=== PATIENT | male | born 1935 | race Caucasian/White ===

== ENCOUNTER 2018-03-08 08:38 | Inpatient (IN) | payer MEDICARE, BC ==
[2018-03-08 09:27] LABS: #Eosinphils 0.2 thou/uL (0.0-0.7); #Lymphocytes 0.5 thou/uL (1.20-3.40); #Monocytes 0.7 thou/uL (0.11-0.59); #Neutrophils 3.7 thou/uL (1.40-6.50); %Basophils 0.5 % (0.0-1.0); %Eosinophils 3.7 % (0.0-10.0); %Monocytes 13.6 % (0.0-10.0); %Neutrophils 73.2 % (42.0-75.0); Hemoglobin 12.5 g/dL (14.0-18.0); Mean Corpuscular HGB CONC 34.9 g/dL (32.0-36.0); Mean Corpuscular Hemoglobin 33.4 pg (27.0-31.0); Mean Corpuscular Volume 95.7 fl (80.0-94.0); Mean Platelet Volume 5.9 fL (7.4-10.4); Platelet Count 167 thou/uL (130-400); RBC Distribution Width 12.8 % (11.5-14.5); Red Blood Cell (RBC) Count 3.74 mill/uL (4.70-6.10); White Blood Cell (WBC) Count 5.1 thou/uL (4.8-10.8)
[2018-03-08 09:41] LABS: ALT (SGPT) 15 U/L (8-55); AST (SGOT) 21 U/L (5-34); Alkaline Phosphatase 64 U/L (40-150); Anion Gap 10 mmol/L (10-20); BUN (Urea Nitrogen) 14 mg/dL (8.4-25.7); Bilirubin, Total 1.1 mg/dL (0.2-1.2); CK (CPK) 368 U/L (30-200); Calc. Creatinine Clearance 0 mL/min (70-130); Carbon Dioxide 27 mmol/L (23-31); Chloride 101 mmol/L (98-107); Estimated GFR-MDRD 89; Globulin 2.7 g/dL (2.4-3.5); Glucose 116 mg/dL (83-110); Potassium 3.5 mmol/L (3.5-5.1); Protein, Total 6.7 g/dL (5.8-8.1); Sodium 134 mmol/L (136-145)
--- NOTE | 2018-03-08 09:41 | RAD ---
PORTABLE CHEST ONE VIEW: Date: 03-08-18 Time: 9:28 a.m. History: Fall. Right hip pain. FINDINGS: There are changes of median sternotomy. The heart size is borderline. The aorta is tortuous. No focal area of consolidation, pneumothorax, toni edema or pleural effusions are seen. IMPRESSION: No acute process. POS: [facility]
--- NOTE | 2018-03-08 09:42 | RAD ---
TWO VIEWS RIGHT HIP: Comparison: None. History: Right hip pain with movement after fall from standing last night. FINDINGS: Two views of the right hip shows a fracture of the right femoral neck which is moderately displaced. Mild degenerative changes are seen in the right hip. Surrounding soft tissue swelling is seen. IMPRESSION: Right femoral neck fracture. POS: [facility]
--- NOTE | 2018-03-08 09:43 | RAD ---
SINGLE VIEW OF PELVIS: Comparison: None. History: Fall from standing with right hip pain. FINDINGS: Single view of the pelvis shows a fracture of the right femoral neck. Mild degenerative changes are s een in both hips. Right hip soft tissue swelling is seen. IMPRESSION: Right femoral neck fracture. POS: [facility]
[2018-03-08 09:46] LABS: CKMB 1.9 ng/mL (0-6.6); Troponin I Less than 0.010 ng/mL (< 0.028)
[2018-03-08 10:13] LABS: Bilirubin Negative (Negative); Blood, Urine Negative (Negative); Clarity CLEAR (Clear); Glucose, Urine (Dipstick) Negative (Negative); Leukocyte Negative (Negative); Nitrite Negative (Negative); Protein, Urine (Dipstick) Negative (Neg-Trace); Specific Gravity, Urine 1.017 (1.002-1.036); Urobilinogen 0.2 mg/dL (0.2-1.0); pH, Urine 5.5 (5.0-9.0)
[2018-03-08 10:47] LABS: INR-International Normal Ratio 1.1; PTT 37.8 SEC (22.9-36.1); Prothrombin Time 14.4 SEC (12.0-14.7)
[2018-03-08] MEDS ORDERED: hydrALAZINE 20 MG/ML VIAL SLOW IVP PRN (13:07)
[2018-03-08] MEDS ORDERED: Dextrose 50% Abboject 50 ML SYRINGE SLOW IVP PRN (13:07)
[2018-03-08] MEDS ORDERED: Dextrose 5% in Water 1,000 ML IV PRN (13:07)
[2018-03-08] MEDS ORDERED: Ondansetron HCl/PF 4 MG/2 ML Vial IVP PRN (13:13)
[2018-03-08] MEDS ORDERED: Ondansetron ODT 4 MG TAB PO PRN (13:13)
[2018-03-08] MEDS ORDERED: Morphine 4 MG/ML VIAL SLOW IVP PRN ×2 (13:13)
[2018-03-08] MEDS ORDERED: CEFAZOLIN/Water 2 GM/20 ML SYRINGE SLOW IVP SCH (14:00)
--- NOTE | 2018-03-08 14:44 | HP ---
DATE OF ADMISSION: 03/08/2018 REQUESTING PHYSICIAN: Elliott Kunz M.D. ATTENDING SURGEON: Dr. Freeman. CONSULTATION: Orthopedics, Dr. Hatfield. HISTORY OF PRESENT ILLNESS: The patient is an 82-year-old man who reportedly yesterday got his foot caught in a fence and fell down landing on his right side. The patient was unable to ambulate, was c arried to the house by family and friends where he stayed in bed overnight. This morning, he was bro ught to the emergency department after he was unable to significantly ambulate again. He was evaluat ed, examined and noted to have a right femoral neck fracture, at which time we were asked to evaluate the patient for admission and obtain orthopedic consultations. The patient denied shortness of kailee th, chest pain, dizziness or any syncopal type symptoms prior to his fall. The patient did not strik e his head, had no loss of consciousness. ALLERGIES: None. CURRENT MEDICATIONS: Daily aspirin, atorvastatin, carvedilol, losartan, sulfasalazine and vitamin D3 . PAST MEDICAL HISTORY: Hypertension and hyperlipidemia. PAST SURGICAL HISTORY: Four-vessel coronary artery bypass graft in 2016, tonsillectomy and cholecyst ectomy. SOCIAL HISTORY: Patient drinks approximately 5 drinks per day. Denies drug use. Denies tobacco use . The patient lives independently at home with his family. FAMILY HISTORY: Hypertension. REVIEW OF SYSTEMS: Ten-point review of systems was negative, otherwise stated. PHYSICAL EXAMINATION: VITAL SIGNS: Blood pressure 131/67, heart rate 65, respirations 16, oxygen saturation 95% on room ai r, and temperature 98.4. GENERAL: The patient is resting comfortably in bed. He is awake, alert, oriented x3. [place] coma scale is 15. HEENT: Head is normocephalic, atraumatic. Eyes: Extraocular motion intact. PERRLA bilaterally. E ars are atraumatic without discharge. Nose is atraumatic without discharge. Oropharynx is clear. NECK: Nontender. Trachea is midline. No JVD. CHEST: Clear to auscultation with good inspiratory and expiratory effort. HEART: Regular rate and rhythm. ABDOMEN: Soft, flat, and nontender with active bowel sounds. Pelvis is stable with tenderness to pa lpation to his left hip consistent with his fracture. EXTREMITIES: Neurovascularly intact x4. BACK: By history is atraumatic and nontender. LABORATORY DATA: White blood cell count 5.1, hemoglobin 12.5, hematocrit 35.8, platelets 167. Sodiu m 134, potassium 3.5, chloride 101, CO2 27, BUN 14, creatinine 0.83, glucose 116. LFTs are unremarka ble. CK 368, PTT 38, PT 14, INR 1.1. Urinalysis is unremarkable. IMAGING DATA: Chest x-ray shows no acute process. AP pelvis shows a right femoral neck fracture. R ight hip films show again a right femoral neck fracture. ASSESSMENT AND PLAN: 1. Status post ground level fall. 2. Right femoral neck fracture. 3. Possible rhabdomyolysis. 4. Pain secondary to acute trauma. 5. History of hypertension. Plan will be to admit the patient to the surgical floor after consultation with Orthopedics. They di d determine that they will take the patient to OR tomorrow for operative intervention. We will do pu lmonary toilet, pain control, IV hydration. Repeat labs in the morning. Gastritis and mechanical DV T prophylaxis. The evaluation, examination, laboratory and radiographic findings were discussed with Dr. Freeman at the time of dictation.
[2018-03-08] MEDS: Ketorolac Tromethamine 30 MG/ML VIAL IVP SCH ×2 (15:01→20:11)
[2018-03-08] MEDS: Acetaminophen 1,000 MG in Premix Bag 1 BAG IVPB SCH ×2 (15:02→20:10)
[2018-03-08] MEDS: Sodium Chloride 0.9% 1,000 ML IV SCH ×2 (15:02→20:10)
--- NOTE | 2018-03-08 15:08 | CON ---
DATE OF CONSULTATION: 03/08/2018 REQUESTING PHYSICIAN: Irvin Kunz. CONSULTING PHYSICIAN: Ihsan Hatfield M.D. REASON FOR CONSULTATION: Right hip fracture. HISTORY OF PRESENT ILLNESS: This is a very active 82-year-old male who states that he was picking be rries in his garden yesterday evening around 8:00 when he tripped over the hot wire cable that keeps the chickens out of his garden. He fell. His son and grandson helped him inside the house where he slept in the recliner for the first portion of the evening. Family at bedside state that they found him in his bed this morning. At that time, he requested they call EMS for transport to the hospital. Upon arrival to our emergency department here at [place] [place], the patient was found to have a right femoral neck fracture that appears somewhat impacted. Orthopedic Services has been consulted for thi s reason. The patient denies any other injuries at the time of his fall. He denies any numbness or tingling to the right lower extremity. He denies head injury. He also denies being on any anticoagu lants. States he takes aspirin daily. PAST MEDICAL HISTORY: Significant for hyperlipidemia and hypertension. PAST SURGICAL HISTORY: Significant for coronary artery bypass graft with 4 vessels done in 03/[address] Duron. He also states he has had a cholecystectomy and a tonsillectomy. SOCIAL HISTORY: Patient states he drinks every day approximately 3-4 drinks. Denies illicit drug us e. Denies smoking history. [place] [facility] [place] other family in nearby home on the same lot of land. Uses a cane to get around occasionally. Lives alone in his house. FAMILY HISTORY: Noncontributory. REVIEW OF SYSTEMS: Ten-point review of systems was conducted and otherwise negative except for as st ated above. PHYSICAL EXAMINATION: VITAL SIGNS: Blood pressure 162/86, pulse of 71, respiratory rate of 18, temperature of 98.4, O2 sat uration is 95% on room air. GENERAL: The patient is awake, alert, and oriented x3. He is in no acute distress. Daughter at bed side. He is appropriate with exam findings today. HEENT: Head is normocephalic, atraumatic. NECK: Supple. Breathing is nonlabored. EXTREMITIES: The right lower extremity appears shortened and slightly externally rotated. There is tenderness to palpation along the trochanteric region of the right hip. SKIN: Free of lesions and rashes. Distal neurovascular status is intact. Remainder of extremity ex am is unremarkable. IMAGING DATA: Radiographic findings including 2 views of the right hip and an AP pelvis demonstrate a femoral neck fracture that appears somewhat impacted. Those findings were reviewed with Dr. Schmid as well as myself today. ASSESSMENT: Right femoral neck fracture. PLAN: Plan of care discussed with Dr. Hatfield today. We have also discussed the plan of care with family at bedside. Surgical options at this time are hemiarthroplasty versus possible total hip repl acement due to the patient's active lifestyle. We will further discuss these options with the patien t and his family as well as Dr. Hatfield. The patient had two bite snickers at bedside at 10:30 this morning in the emergency department. We will plan for surgery tomorrow once we further discussed ri sks, benefits, and alternatives with the family.
[2018-03-08 17:02] VITALS: BMI 25.7
[2018-03-08] MEDS ORDERED: Prevnar 13-Val Conj/PF 0.5 ML SYRINGE IM ONE (17:30)
[2018-03-08] MEDS: Famotidine 20 MG TAB PO SCH (20:10)
[2018-03-08] MEDS: Carvedilol 3.125 MG TAB PO SCH (21:13)
[2018-03-09] MEDS: Acetaminophen 1,000 MG in Premix Bag 1 BAG IVPB SCH (01:49)
[2018-03-09] MEDS: Ketorolac Tromethamine 30 MG/ML VIAL IVP SCH ×2 (01:50→08:00)
[2018-03-09 05:00] LABS: Anion Gap 7 mmol/L (10-20); BUN (Urea Nitrogen) 15 mg/dL (8.4-25.7); Calc. Creatinine Clearance 87 mL/min (70-130); Calcium 8.2 mg/dL (7.8-10.44); Carbon Dioxide 28 mmol/L (23-31); Chloride 102 mmol/L (98-107); Estimated GFR-MDRD 89; Glucose 103 mg/dL (83-110); Phosphorus 4.2 mg/dL (2.3-4.7); Potassium 3.9 mmol/L (3.5-5.1); Sodium 133 mmol/L (136-145)
[2018-03-09 05:33] LABS: Eosinophils 2 % (0-10); Hemoglobin 11.2 g/dL (14.0-18.0); Hypochromia SLIGHT = 6-15 cells (100X) (0-5/hpf); Lymphocytes 9 % (21-51); MDiff Complete? YES; Mean Corpuscular Volume 97.2 fl (80.0-94.0); Mean Platelet Volume 6.1 fL (7.4-10.4); Monocytes 17 % (0-10); Neutrophil 72 % (42-75); PLT Morphology Comment Appears Adequate; Platelet Count 142 thou/uL (130-400); RBC Distribution Width 12.9 % (11.5-14.5); Red Blood Cell (RBC) Count 3.38 mill/uL (4.70-6.10); White Blood Cell (WBC) Count 4.4 thou/uL (4.8-10.8)
[2018-03-09] MEDS: Sodium Chloride 0.9% 1,000 ML IV SCH ×3 (05:50→18:59)
[2018-03-09] MEDS: Carvedilol 3.125 MG TAB PO SCH ×2 (06:07→20:28)
[2018-03-09] MEDS ORDERED: Fentanyl 100 MCG/2 ML VIAL ONE (07:11)
[2018-03-09] MEDS ORDERED: CEFAZOLIN/Water 2 GM/20 ML SYRINGE ONE (07:36)
[2018-03-09] MEDS ORDERED: Bupivacaine 0.75% W/DEXTROSE 8.25% 2 ML AMP ONE (07:52)
[2018-03-09] MEDS ORDERED: Morphine PF 1 MG/ML SYR ONE (07:52)
[2018-03-09] MEDS ORDERED: Midazolam HCl 2 mg/2 ml Vial ONE (08:47)
[2018-03-09] MEDS: Famotidine 20 MG TAB PO SCH ×2 (09:00→20:28)
[2018-03-09] MEDS ORDERED: Propofol 500 MG/50 ML VIAL ONE (09:38)
[2018-03-09] MEDS ORDERED: Promethazine HCl 25 MG/ML VIAL SLOW IVP PRN (10:26)
[2018-03-09] MEDS ORDERED: Promethazine HCl 25 MG/ML VIAL IM PRN (10:26)
[2018-03-09] MEDS ORDERED: Ondansetron HCl/PF 4 MG/2 ML Vial IVP PRN ×2 (10:26→11:55)
[2018-03-09] MEDS ORDERED: diphenhydrAMINE 50 MG/ML VIAL IVP PRN (11:55)
[2018-03-09] MEDS ORDERED: Naloxone HCl 0.4 mg/ml Vial IV PRN (11:55)
[2018-03-09] MEDS ORDERED: Naloxone HCl 0.4 mg/ml Vial IVP PRN ×2 (11:55)
[2018-03-09] MEDS ORDERED: Eucerin (Mineral Oil/Petrolatum,White) 30 gm Jar TOP PRN (11:55)
[2018-03-09] MEDS ORDERED: Communication Order-Pharmacy FS SCH (12:00)
--- NOTE | 2018-03-09 12:02 | OP ---
DATE OF SURGERY: 03/09/2018 PREOPERATIVE DIAGNOSIS: Right subcapital femoral neck fracture. POSTOPERATIVE DIAGNOSIS: Right subcapital femoral neck fracture. SURGICAL PROCEDURE: Right hip hemiarthroplasty. ANESTHESIA: Spinal. SURGEON: Ihsan Hatfield M.D. CRACKER OFF: Tamiko Golden PA-C. ESTIMATED BLOOD LOSS: 300 mL. IMPLANTS: DePuy system was used with a size 7 Stanley stem, a +5 Articul/Kevin femoral head and a 28 x 57 mm bipolar cup. COMPLICATIONS: None. DRAINS: None. SPECIMEN: None. OUTCOME: Satisfactory. INDICATIONS: The patient is a pleasant 82-year-old gentleman who sustained a ground level fall fract uring his left subcapital femoral neck. After discussion with patient including risks and benefits, we decided to proceed with right hip hemiarthroplasty. Informed consent has been obtained. I believ e all questions have been answered. PROCEDURE IN DETAIL: After the induction of spinal anesthesia, the patient was positioned in the lef t lateral decubitus position and then a sterile prep and drape was performed of the right lower extre mity. Next, a curvilinear incision was made centered over the tip of the greater trochanter. After skin was sharply incised, dissection was carried through the subcutaneous fat down to the tensor fasc ia and fascia clarissa. This structure was incised in line with the skin incision and then reflected ant eriorly and posteriorly revealing the greater trochanter and the trochanteric bursa. The bursa was s wept off the short external rotators and an elevator was passed under the abductors revealing the pir iformis as well as the superior and inferior gemelli. The piriformis was resected and tagged and ref lected posteriorly as was the gemelli. Next, a T-capsulotomy was performed. The hip was dislocated and the femoral head removed from the acetabulum without difficulty. Next, an oscillating saw was us ed to make a femoral neck cut. Excess bone was then removed from the wound including exploration of the acetabular cup to make sure no bone fragments were present. At the completion of this, a box cut ter chisel was used to open up the proximal femur followed by a T-handle awl. A lateralizing reamer was then passed down the canal and then progressive T-handle awls were passed down the canal up to a size 7. Broaching was started at size 3 and continued up to size 7 that provided excellent fit and f ill. A trial reduction was performed and a +5 head was found to give excellent stability of the hip and equalize on leg lengths. As such, the trial components were removed from the hip. The leg was t hen irrigated with 3 liters of normal saline using Pulsavac and then the final implant was inserted i n the femur. The bipolar head assembled and inserted on top of the stem and then the hip reduced, th is resulted in the hip with excellent stability. The wound again irrigated with Pulsavac and then cl osed in layers with #2 Vicryl for a capsular closure followed by #2 Vicryl for reattachment of the pi riformis and gemelli. Next, #2 Vicryl was used for the tensor fascia and fascia clarissa followed by 0 V icryl for Arnulfo's fascia, 2-0 Vicryl subcutaneously and nova for the skin. A Xeroform gauze and tape dressing was applied to the thigh and then patient was transferred to recovery room in stable co ndition. There were no complications. He tolerated the procedure well.
--- NOTE | 2018-03-09 12:43 | RAD ---
RIGHT HIP 2 VIEWS: Date: 03/09/18 HISTORY: Postop. FINDINGS: Total hip prosthesis is in satisfactory position. No fracture. IMPRESSION: Placement of total hip prosthesis. POS: [facility]
[2018-03-09] MEDS ORDERED: PHENYLEPHRINE-NS 100 MCG/ML 10 ML SYRINGE ONE (15:22)
[2018-03-09] MEDS ORDERED: PROPOFOL 200 MG/20 ML VIAL ONE (15:22)
[2018-03-09] MEDS ORDERED: Lidocaine 1% PF 5 ML VIAL ONE (15:22)
[2018-03-09] MEDS ORDERED: ePHEDrine/0.9% NaCl/PF SYRINGE 50 mg/10 ml ONE (15:22)
[2018-03-09] MEDS ORDERED: traMADol HCl 50 MG TAB PO PRN ×3 (17:03→23:59)
[2018-03-09] MEDS: CEFAZOLIN/Water 2 GM/20 ML SYRINGE SLOW IVP SCH (17:04)
[2018-03-09] MEDS ORDERED: Ibuprofen 600 MG TAB PO PRN (17:15)
[2018-03-09] MEDS: Acetaminophen 500 MG TAB PO SCH (18:14)
[2018-03-09] MEDS: sulfaSALAzine 500 MG TAB PO SCH (20:27)
[2018-03-09] MEDS: Atorvastatin Calcium 40 MG TAB PO SCH (20:28)
[2018-03-09] MEDS ORDERED: Morphine 4 MG/ML VIAL SLOW IVP PRN ×2 (23:59)
[2018-03-10] MEDS: CEFAZOLIN/Water 2 GM/20 ML SYRINGE SLOW IVP SCH ×2 (00:25→09:34)
[2018-03-10] MEDS: Acetaminophen 500 MG TAB PO SCH ×5 (00:25→23:48)
[2018-03-10 07:34] LABS: Hemoglobin 9.7 g/dL (14.0-18.0); Mean Corpuscular HGB CONC 34.7 g/dL (32.0-36.0); Mean Corpuscular Hemoglobin 33.6 pg (27.0-31.0); Mean Corpuscular Volume 96.7 fl (80.0-94.0); Mean Platelet Volume 5.9 fL (7.4-10.4); Platelet Count 133 thou/uL (130-400); RBC Distribution Width 12.7 % (11.5-14.5); Red Blood Cell (RBC) Count 2.89 mill/uL (4.70-6.10)
[2018-03-10 07:56] LABS: Band 13 % (5-11); Eosinophils 3 % (0-10); Lymphocytes 14 % (21-51); MDiff Complete? YES; Metamyelocyte 5 % (0-0); Monocytes 1 % (0-10); Neutrophil 58 % (42-75); Reactive Lymphocytes 4 % (0-10); Reflex for Review?? YES
[2018-03-10] MEDS ORDERED: CEFAZOLIN/Water 2 GM/20 ML SYRINGE SLOW IVP SCH (08:46)
[2018-03-10] MEDS: Famotidine 20 MG TAB PO SCH ×2 (09:15→21:06)
[2018-03-10] MEDS: sulfaSALAzine 500 MG TAB PO SCH ×2 (09:15→21:08)
[2018-03-10] MEDS: Carvedilol 3.125 MG TAB PO SCH ×2 (09:15→21:08)
[2018-03-10] MEDS: Polyethylene Glycol 3350 17 GM Packet PO SCH (09:16)
[2018-03-10] MEDS: Senokot S 8.6-50 MG TAB PO SCH ×2 (09:16→21:07)
[2018-03-10] MEDS: traMADol HCl 50 MG TAB PO PRN (10:24)
[2018-03-10] MEDS: Cyclobenzaprine 10 MG TAB PO PRN (21:02)
[2018-03-10] MEDS: Atorvastatin Calcium 40 MG TAB PO SCH (21:08)
--- NOTE | 2018-03-11 00:32 | PRG ---
DATE OF SERVICE: 03/10/2018 SUBJECTIVE: The patient is currently on the surgical floor. He is hospital day #2, postop day #1 st atus post ground-level fall, in which he sustained a right femoral neck fracture. The patient underw ent surgery yesterday and tolerated this procedure well. Today, he is working with physical and occu pational therapy. He states that his pain is controlled and he is tolerating a diet. OBJECTIVE: VITAL SIGNS: Temperature is 97.9, heart rate 71, blood pressure 106/62, oxygen saturation is 94% on room air. GENERAL: The patient is resting comfortably in bed. He has just finished working with physical and occupational therapy. He is alert and oriented. His [place] coma scale is 15. HEENT: Unremarkable. LUNGS: Clear to auscultation bilaterally with good inspiratory and expiratory effort. HEART: Regular rate and rhythm. ABDOMEN: Soft, flat, nontender with active bowel sounds. EXTREMITIES: Neurovascularly intact x4. Capillary refill is less than 3 seconds. LABORATORY DATA: White blood cell count 5.0, hemoglobin 9.7, hematocrit 27.9, platelets 133. Sodium 133, potassium 3.9, chloride 102, CO2 of 28, BUN 15, creatinine 0.83, glucose 103, magnesium 2.0, ph osphorus 4.2. There are no radiographs to review this morning. ASSESSMENT AND PLAN: 1. Status post ground-level fall. 2. Status post open reduction and internal fixation of right hip fracture. Plan will be to continue supportive care, physical and occupational therapy and consult rehab for fin al disposition.
[2018-03-11 05:17] LABS: Anion Gap 7 mmol/L (10-20); BUN (Urea Nitrogen) 12 mg/dL (8.4-25.7); CK (CPK) 428 U/L (30-200); Calc. Creatinine Clearance 97 mL/min (70-130); Calcium 8.5 mg/dL (7.8-10.44); Carbon Dioxide 30 mmol/L (23-31); Chloride 103 mmol/L (98-107); Estimated GFR-MDRD Greater than 90; Glucose 110 mg/dL (83-110); Magnesium 1.8 mg/dL (1.6-2.6); Potassium 3.8 mmol/L (3.5-5.1); Sodium 136 mmol/L (136-145)
[2018-03-11 05:28] LABS: Band 10 % (5-11); Eosinophils 2 % (0-10); Hemoglobin 9.6 g/dL (14.0-18.0); Lymphocytes 18 % (21-51); MDiff Complete? YES; Mean Corpuscular HGB CONC 34.1 g/dL (32.0-36.0); Mean Corpuscular Hemoglobin 32.8 pg (27.0-31.0); Mean Platelet Volume 6.3 fL (7.4-10.4); Metamyelocyte 2 % (0-0); Monocytes 8 % (0-10); Neutrophil 60 % (42-75); PLT Morphology Comment Appears Adequate; Platelet Count 147 thou/uL (130-400); RBC Distribution Width 12.6 % (11.5-14.5); Red Blood Cell (RBC) Count 2.92 mill/uL (4.70-6.10); White Blood Cell (WBC) Count 5.7 thou/uL (4.8-10.8)
[2018-03-11] MEDS: Acetaminophen 500 MG TAB PO SCH ×4 (06:10→23:55)
[2018-03-11] MEDS: Famotidine 20 MG TAB PO SCH ×2 (08:47→20:35)
[2018-03-11] MEDS: sulfaSALAzine 500 MG TAB PO SCH ×2 (08:47→20:36)
[2018-03-11] MEDS: Carvedilol 3.125 MG TAB PO SCH ×2 (08:47→20:35)
[2018-03-11] MEDS: traMADol HCl 50 MG TAB PO PRN (08:48)
[2018-03-11] MEDS: Polyethylene Glycol 3350 17 GM Packet PO SCH (08:53)
[2018-03-11] MEDS: Senokot S 8.6-50 MG TAB PO SCH ×2 (08:53→20:36)
[2018-03-11] MEDS: Aspirin 81 mg Enteric Coated Tablet PO SCH ×2 (11:08→20:33)
--- NOTE | 2018-03-11 14:09 | PRG ---
DATE OF SERVICE: 03/11/2018 The patient is currently on the surgical floor. He is hospital day #3, postop day #2 status post jessa und level fall which he sustained a right femoral neck fracture. The patient underwent open reductio n internal fixation for the same. He tolerated the procedure well and has begun working with physica l and occupational therapy. The patient had no issues overnight. This morning he states his pain co ntrolled. He is tolerating a diet. OBJECTIVE: VITAL SIGNS: Temperature is 98.2, heart rate 72, blood pressure 125/67, respirations 14, oxygen satu ration 97% on room air. GENERAL: The patient is resting comfortably in a chair beside his bed. He is awake, alert, and orie nted x3. [place] coma scale is 15. LUNGS: Clear to auscultation with good inspiratory and expiratory effort. HEART: Regular rate and rhythm. ABDOMEN: Soft, flat, nontender with active bowel sounds. EXTREMITIES: Neurovascularly intact x4. Postop dressing is clean, dry and intact. LABORATORY DATA: White blood cell count 5.7, hemoglobin 9.6, hematocrit 28.0, platelets 147. Sodium 136, potassium 3.8, chloride 103, CO2 30, BUN 12, creatinine 0.74, magnesium 1.8, phosphorus 3.0. There are no radiographs to review this morning. ASSESSMENT AND PLAN: 1. Status post ground level fall. 2. Status post open reduction internal fixation of right hip fracture. The plan will be to continue supportive care, physical and occupational therapy and await final place ment decision.
[2018-03-11] MEDS: Atorvastatin Calcium 40 MG TAB PO SCH (20:33)
[2018-03-11] MEDS: Cyclobenzaprine 10 MG TAB PO PRN (20:36)
[2018-03-12 04:22] LABS: Anion Gap 7 mmol/L (10-20); BUN (Urea Nitrogen) 12 mg/dL (8.4-25.7); CK (CPK) 304 U/L (30-200); Calc. Creatinine Clearance 95 mL/min (70-130); Calcium 8.3 mg/dL (7.8-10.44); Carbon Dioxide 31 mmol/L (23-31); Chloride 101 mmol/L (98-107); Estimated GFR-MDRD Greater than 90; Glucose 102 mg/dL (83-110); Magnesium 1.8 mg/dL (1.6-2.6); Phosphorus 3.2 mg/dL (2.3-4.7); Potassium 3.6 mmol/L (3.5-5.1); Sodium 135 mmol/L (136-145)
[2018-03-12 04:26] LABS: Band 1 % (5-11); Eosinophils 5 % (0-10); Hemoglobin 9.1 g/dL (14.0-18.0); Lymphocytes 15 % (21-51); MDiff Complete? YES; Mean Corpuscular HGB CONC 34.2 g/dL (32.0-36.0); Mean Corpuscular Hemoglobin 33.2 pg (27.0-31.0); Mean Corpuscular Volume 97.2 fl (80.0-94.0); Mean Platelet Volume 5.9 fL (7.4-10.4); Monocytes 17 % (0-10); Neutrophil 62 % (42-75); PLT Morphology Comment Appears Adequate; Platelet Count 164 thou/uL (130-400); RBC Distribution Width 12.8 % (11.5-14.5); Red Blood Cell (RBC) Count 2.75 mill/uL (4.70-6.10); White Blood Cell (WBC) Count 5.2 thou/uL (4.8-10.8)
[2018-03-12] MEDS: Acetaminophen 500 MG TAB PO SCH ×2 (06:41→15:14)
[2018-03-12] MEDS: Aspirin 81 mg Enteric Coated Tablet PO SCH (07:57)
[2018-03-12] MEDS: Carvedilol 3.125 MG TAB PO SCH (07:57)
[2018-03-12] MEDS: traMADol HCl 50 MG TAB PO PRN (07:58)
[2018-03-12] MEDS: Famotidine 20 MG TAB PO SCH (07:59)
[2018-03-12] MEDS: Senokot S 8.6-50 MG TAB PO SCH (08:00)
[2018-03-12] MEDS: Polyethylene Glycol 3350 17 GM Packet PO SCH (08:00)
[2018-03-12] MEDS: sulfaSALAzine 500 MG TAB PO SCH (08:00)
[2018-03-12 12:47] VITALS: TEMP 98
[2018-03-12 13:16] VITALS: BP 154/89
--- NOTE | 2018-03-13 14:46 | EKG ---
Test Reason : Blood Pressure : / mmHG Vent. Rate : 066 BPM Atrial Rate : 066 BPM P-R Int : 210 ms QRS Dur : 102 ms QT Int : 432 ms P-R-T Axes : 070 -62 025 degrees QTc Int : 452 ms Sinus rhythm with 1st degree A-V block Incomplete right bundle branch block Left anterior fascicular block No STEMI Abnormal ECG Confirmed by KELLI RODRIGUEZ, SANGITA Ramsey ([id number]), supervising film or videotape editor JUDAH VALENCIA ([id number]) on 03/13/2018 2:46:04 PM Referred By: Confirmed By:SANGITA PEREIRA MD
== END 2018-03-12 17:20 | disposition home or self-care (01) | DRG 470 ==
LOC: ERS 08:38 → SURG B 11:48
PROVIDERS: ADMIT Surgery; ATTEND Surgery
PROC: 0SRR0JZ Replacement of Right Hip Joint, Femoral Surface with Synthetic Substitute, Open Approach (ICD-10-PCS; principal; 2018-03-09)
DX: S72.001A Fracture of unspecified part of neck of right femur, initial encounter for closed fracture (principal); M62.82 Rhabdomyolysis; S72.011A Unspecified intracapsular fracture of right femur, initial encounter for closed fracture; W19.XXXA Unspecified fall, initial encounter; I10 Essential (primary) hypertension; Z95.1 Presence of aortocoronary bypass graft; E78.5 Hyperlipidemia, unspecified; Z79.82 Long term (current) use of aspirin
CPT/HCPCS: 36415; 71045; 72170; 80048; 80053; 81003; 82550; 82553; 83735; 84100; 84484; 85025; 85060; 85610; 85730; 93005; G0390; G8978-GP-CL; G8979-GP-CJ; G8987-GO-CK; G8988-GO-CI; J0131; J1885; J2001; J2250; J2274; J2704; J3010; J3490

== ENCOUNTER 2020-01-08 08:36 | Emergency (ER) | payer MEDICARE, BC ==
--- NOTE | 2020-01-08 10:10 | RAD ---
PORTABLE CHEST 1 VIEW: DATE: 01/08/2020. TIME: 9:02 AM. HISTORY: Cough. FINDINGS: Comparison is made with the exam of 03/08/2018. There are changes of median sternotomy. The heart size is normal. The aorta is tortuous. The lungs are expanded without lobar consolidation, pneumothoraces, or pleural effusions. There are degenerat francisca changes in the acromioclavicular joints. IMPRESSION: No acute process. POS: [facility]
[2020-01-08 10:11] LABS: Mean Corpuscular HGB CONC 35.1 g/dL (32.0-36.0); Mean Corpuscular Hemoglobin 34.1 pg (27.0-31.0); Mean Corpuscular Volume 96.9 fL (78.0-98.0); Mean Platelet Volume 6.5 fL (7.4-10.4); Platelet Count 162 thou/uL (130-400); RBC Distribution Width 11.5 % (11.5-14.5); Red Blood Cell (RBC) Count 3.81 mill/uL (4.70-6.10); White Blood Cell (WBC) Count 4.2 thou/uL (4.8-10.8)
[2020-01-08 10:12] LABS: ALT (SGPT) 13 U/L (8-55); AST (SGOT) 20 U/L (5-34); Albumin 4.3 g/dL (3.4-4.8); Alkaline Phosphatase 55 U/L (40-110); Anion Gap 12 mmol/L (10-20); BUN (Urea Nitrogen) 17 mg/dL (8.4-25.7); Bilirubin, Total 0.6 mg/dL (0.2-1.2); CK (CPK) 84 U/L (30-200); Calc. Creatinine Clearance 0 mL/min (70-130); Calcium 9.2 mg/dL (7.8-10.44); Carbon Dioxide 30 mmol/L (23-31); Chloride 91 mmol/L (98-107); Estimated GFR-MDRD 86; Globulin 2.6 g/dL (2.4-3.5); Glucose 105 mg/dL (83-110); Magnesium 1.6 mg/dL (1.6-2.6); Potassium 3.4 mmol/L (3.5-5.1); Protein, Total 6.9 g/dL (5.8-8.1); Sodium 130 mmol/L (136-145)
[2020-01-08 10:14] LABS: Band 16 % (5-11); Eosinophils 1 % (0-10); Lymphocytes 15 % (21-51); MDiff Complete? YES; Monocytes 19 % (0-10); Neutrophil 49 % (42-75); RBC Morphology Normal
== END 2020-01-08 11:25 | disposition home or self-care (01) ==
LOC: ERS 08:36
DX: E86.0 Dehydration (principal); R05 Cough; E78.5 Hyperlipidemia, unspecified; E78.00 Pure hypercholesterolemia, unspecified; I10 Essential (primary) hypertension; Z79.899 Other long term (current) drug therapy
CPT/HCPCS: 71045; 80053; 82550; 83735; 83880; 84443; 84484; 85025; 93005; 96360